=== PATIENT | female | born 1995 | race African-American/Black ===

== ENCOUNTER 2017-01-07 18:49 | Emergency (ER) | payer OTHER ==
[~2017-01-07] VITALS: Ht 147.3 cm; Wt 52.0 kg
[~2017-01-07 18:49] MED LIST: MEDR4PAK3 PO
[2017-01-07 18:54] VITALS: BP 134/66; PULSE 105; RESP 16; TEMP 98.7; O2SAT 99
--- NOTE | 2017-01-07 19:06 | PD ---
Physical Exam Date Seen by Provider: Jan 07, 2017 Time Seen by Provider: 19:04 Narrative 21 yo female here for evaluation of finger injury. Left middle finger. Happened yesterday on a car door. No other complains. Vitals stable in triage. Awaiting bed placement Data Data Last Documented VS Vital Signs Date Time Temp Pulse Resp B/P (MAP) Pulse Ox O2 Delivery O2 Flow Rate FiO2 01/07/17 18:54 98.7 105 16 134/66 (88) 99 MDM Medical Record Reviewed: Yes Supervised Visit with SOFIA: Jeffrey Moreno Jan 07, 2017 19:06
--- NOTE | 2017-01-07 20:16 | RADRPT ---
EXAM DATE/TIME: 01/07/2017 19:27 [facility] COMPARISON: No previous studies available for comparison. INDICATIONS : Left distal middle finger was smashed in a car door yesterday. MEDICAL HISTORY : None. SURGICAL HISTORY : None. ENCOUNTER: Initial ACUITY: 1 day PAIN SCORE: 7/10 LOCATION: Left distal 3rd digit. FINDINGS: Examination of the third digit of the left hand demonstrates no evidence of fracture or dislocation. No radiopaque foreign bodies are seen. The soft tissues are intact. CONCLUSION: No acute disease. Den Lynn MD on January 07, 2017 at 20:14 Board Certified Radiologist. This report was verified electronically.
--- NOTE | 2017-01-07 22:48 | PD ---
HPI Chief Complaint: Pain: Acute or Chronic Time Seen by Provider: 22:45 Travel History International Travel<30 days: No Contact w/Intl Traveler<30days: No Traveled to known affect area: No History of Present Illness HPI 21-year-old female presents for evaluation of an injury to the distal left third finger. She closed the car door on her left third finger yesterday. She has developed some subungual hematoma which is painful, aching, worse with palpation. Her friend put a needle through her nail which seemed to help some however the symptoms have persisted which prompted evaluation. Last tetanus vaccination 1 year ago. No other complaints. PFSH Past Medical History Cardiovascular Problems: Yes (hearth murmur) Diminished Hearing: No Immunizations Current: No Tetanus Vaccination: < 5 Years ?: Not LMP: 01/06 Past Surgical History Surgical History: No Previous Surgery Social History Alcohol Use: No Tobacco Use: No Substance Use: Yes (thc) Allergies-Medications (Allergen,Severity, Reaction): Coded Allergies: No Known Allergies (Unverified , 08/26/15) Reported Meds & Prescriptions Reported Meds & Active Scripts Active Review of Systems Musculoskeletal: Positive: Pain Skin: Positive Other (pain, subungual hematoma) Physical Exam Narrative GENERAL: Well-nourished female in no acute distress SKIN: Warm and dry. Extremities: Left third finger nail subungual hematoma proximal 25% of the nail. The nail is not loose. Data Data Last Documented VS Vital Signs Date Time Temp Pulse Resp B/P (MAP) Pulse Ox O2 Delivery O2 Flow Rate FiO2 01/07/17 18:54 98.7 105 16 134/66 (88) 99 Orders Orders Finger ([id number]) (01/07/17 ) MDM Medical Decision Making Medical Screen Exam Complete: Yes Emergency Medical Condition: Yes Medical Record Reviewed: Yes Differential Diagnosis Subungual hematoma, nail bed laceration, fracture Narrative Course The patient presents with a injury to left third finger sustained yesterday morning. Examination reveals a subungual hematoma. An x-ray was performed revealing no evidence of fracture. The patient verbally consents to nail trephination. Significant improvement of symptoms with minimal subungual blood present after the procedure. She is stable for discharge. Procedures Procedure Narrative Nail trephination: No trephination was performed utilizing a cautery after the area was cleansed with Betadine. Patient tolerated procedure well. Diagnosis Primary Impression: Subungual hematoma of finger Qualified Codes: S60.10XA - Contusion of unspecified finger with damage to nail, initial encounter Additional Instructions: Wash with soap and water and apply antibiotic cream daily. Tylenol or Motrin for pain. Med/Other Pt SpecificInfo: Wound Care Disposition: DISCHARGE HOME Condition: Stable Damon Tatum Jan 07, 2017 22:48
== END 2017-01-07 23:19 | disposition home or self-care (01) ==
LOC: NEPK 18:49
DX: S60.032A Contusion of left middle finger without damage to nail, initial encounter (principal); W23.0XXA Caught, crushed, jammed, or pinched between moving objects, initial encounter
CPT/HCPCS: 11740; 73140

== ENCOUNTER 2017-08-19 12:59 | Emergency (ER) | payer OTHER ==
[~2017-08-19] VITALS: Ht 147.3 cm; Wt 53.0 kg
[2017-08-19 13:35] VITALS: BP 133/69; PULSE 88; RESP 17; TEMP 98.2; O2SAT 100
--- NOTE | 2017-08-19 14:08 | RADRPT ---
EXAM DATE/TIME: 08/19/2017 13:53 [facility] COMPARISON: No previous studies available for comparison. INDICATIONS : Chest and right side back pain. MEDICAL HISTORY : Heart murmur. SURGICAL HISTORY : None. ENCOUNTER: Initial ACUITY: 2 days PAIN SCORE: 5/10 LOCATION: Left middle chest FINDINGS: PA and lateral views of the chest demonstrate the lungs to be symmetrically aerated without evidence of mass, infiltrate or effusion. Mild prominence of the cardiac silhouette. Scoliosis. CONCLUSION: Scoliosis with mild prominence of the cardiac silhouette.. Garrett Martin MD FACR on August 19, 2017 at 14:04 Board Certified Radiologist. This report was verified electronically.
[2017-08-19 14:33] LABS: AUTOMATED NEUTROPHIL # 8.7 TH/MM3 (1.8-7.7); BASOPHIL % 0.4 % (0.0-2.0); EOSINOPHIL # 0.1 TH/MM3 (0-0.4); HEMATOCRIT 41.1 % (35.0-46.0); HEMOGLOBIN 13.6 GM/DL (11.6-15.3); LYMPH % 14.3 % (9.0-44.0); LYMPHOCYTE # 1.6 TH/MM3 (1.0-4.8); MEAN CELL VOLUME 88.5 FL (80.0-100.0); MEAN CORPUSCULAR HEMOGLOBIN 29.2 PG (27.0-34.0); MONO % 8.6 % (0.0-8.0); NEUT % 75.7 % (16.0-70.0); PLATELET COUNT 430 TH/MM3 (150-450); RED BLOOD COUNT 4.65 MIL/MM3 (4.00-5.30); WHITE BLOOD COUNT 11.4 TH/MM3 (4.0-11.0)
[2017-08-19 14:59] LABS: BICARBONATE 26.5 MEQ/L (21.0-32.0); BLOOD UREA NITROGEN 10 MG/DL (7-18); CHLORIDE 103 MEQ/L (98-107); CREATININE 0.77 MG/DL (0.50-1.00); GLOMERULAR FILTRATION RATE 115 ML/MIN (>89); GLUCOSE,RANDOM 87 MG/DL (74-106); SODIUM (NA) 137 MEQ/L (136-145)
[2017-08-19 15:04] LABS: TROPONIN I LESS THAN 0.02 NG/ML (0.02-0.05)
--- NOTE | 2017-08-19 15:54 | PD ---
HPI Chief Complaint: Pain: Acute or Chronic Time Seen by Provider: 15:44 Travel History International Travel<30 days: No Contact w/Intl Traveler<30days: No Traveled to known affect area: No History of Present Illness HPI This is a 21-year-old female with no significant past medical history presents for evaluation of right-sided chest and back pain. Symptoms started yesterday. The pain is a sharp pain which is worse with deep inspiration and worse with movement. Symptoms are alleviated when she is sitting still. She reports that she had some paresthesias on the right side of her chest today as well which resolved. She denies shortness of breath, cough, congestion, nausea, vomiting, abdominal pain, leg swelling. She denies any recent travel. She is not on any oral contraceptives. She endorses occasional marijuana and tobacco use. She has no other complaints at this time. PFSH Past Medical History Cardiovascular Problems: Yes (hearth murmur) Diminished Hearing: No Immunizations Current: No ?: Not Social History Alcohol Use: No Tobacco Use: Yes Substance Use: Yes (thc) Allergies-Medications (Allergen,Severity, Reaction): Coded Allergies: No Known Allergies (Unverified Adverse Reaction, Unknown, 08/19/17) Reported Meds & Prescriptions Reported Meds & Active Scripts Active Ibuprofen 600 Mg Tab 600 Mg PO Q6H PRN 7 Days Review of Systems Except as stated in HPI: all other systems reviewed are Neg Physical Exam Narrative GENERAL: Well-developed well-nourished female no acute distress SKIN: Warm and dry. HEAD: Atraumatic. Normocephalic. EYES: Pupils equal and round. No scleral icterus. No injection or drainage. ENT: No nasal bleeding or discharge. Mucous membranes pink and moist. NECK: Trachea midline. No JVD. CARDIOVASCULAR: Regular rate and rhythm. No murmur appreciated. RESPIRATORY: No accessory muscle use. Clear to auscultation. Breath sounds equal bilaterally. GASTROINTESTINAL: Abdomen soft, non-tender, nondistended. Hepatic and splenic margins not palpable. MUSCULOSKELETAL: No obvious deformities. No edema. NEUROLOGICAL: Awake and alert. No obvious cranial nerve deficits. Motor grossly within normal limits. Normal speech. Data Data Last Documented VS Vital Signs Date Time Temp Pulse Resp B/P (MAP) Pulse Ox O2 Delivery O2 Flow Rate FiO2 08/19/17 16:10 85 16 127/67 (87) 100 Room Air 08/19/17 13:35 98.2 Orders Orders Electrocardiogram (08/19/17 13:38) Complete Blood Count With Diff (08/19/17 13:38) Basic Metabolic Panel (Bmp) (08/19/17 13:38) Ckmb (Isoenzyme) Profile (08/19/17 13:38) Troponin I (08/19/17 13:38) Chest, Pa & Lat (08/19/17 13:38) CKMB (08/19/17 14:13) CKMB% (08/19/17 14:13) D-Dimer (08/19/17 15:50) Ed Urine Pregnancytest Poc (08/19/17 15:50) Ketorolac Inj (Toradol Inj) (08/19/17 16:00) Labs Laboratory Tests Test 08/19/17 14:13 08/19/17 16:10 White Blood Count 11.4 TH/MM3 Red Blood Count 4.65 MIL/MM3 Hemoglobin 13.6 GM/DL Hematocrit 41.1 % Mean Corpuscular Volume 88.5 FL Mean Corpuscular Hemoglobin 29.2 PG Mean Corpuscular Hemoglobin Concent 33.0 % Red Cell Distribution Width 13.0 % Platelet Count 430 TH/MM3 Mean Platelet Volume 7.0 FL Neutrophils (%) (Auto) 75.7 % Lymphocytes (%) (Auto) 14.3 % Monocytes (%) (Auto) 8.6 % Eosinophils (%) (Auto) 1.0 % Basophils (%) (Auto) 0.4 % Neutrophils # (Auto) 8.7 TH/MM3 Lymphocytes # (Auto) 1.6 TH/MM3 Monocytes # (Auto) 1.0 TH/MM3 Eosinophils # (Auto) 0.1 TH/MM3 Basophils # (Auto) 0.0 TH/MM3 CBC Comment DIFF FINAL Differential Comment Blood Urea Nitrogen 10 MG/DL Creatinine 0.77 MG/DL Random Glucose 87 MG/DL Calcium Level 9.0 MG/DL Sodium Level 137 MEQ/L Potassium Level 3.7 MEQ/L Chloride Level 103 MEQ/L Carbon Dioxide Level 26.5 MEQ/L Anion Gap 8 MEQ/L Estimat Glomerular Filtration Rate 115 ML/MIN Total Creatine Kinase 126 U/L Creatine Kinase MB 0.7 NG/ML Troponin I LESS THAN 0.02 NG/ML D-Dimer Quantitative (PE/DVT) 0.29 MG/L FEU [facility] Medical Decision Making Medical Screen Exam Complete: Yes Emergency Medical Condition: Yes Medical Record Reviewed: Yes Differential Diagnosis Pleurisy, costochondritis, pericarditis, myocarditis, aortic dissection, pneumonia, pulmonary embolism Narrative Course 21-year-old female presents with sharp right-sided chest and back pain which is worse with movement and inspiration. She appears well. Her lungs are clear to auscultation. Abdomen is soft and nontender. No evidence of DVT on examination. Lab work and chest x-ray obtained in triage. CBC reveals a WBC of 11.4, BMP is unremarkable, cardiac enzymes are negative. EKG reveals sinus rhythm. Chest x-ray reveals scoliosis with mild prominence of the cardiac silhouette. A d-dimer and a urine tests have been added on. The patient will be given Toradol for her pleuritic chest pain. D-dimer is negative. The patient has been stable during her hospital stay. She will be discharged with ibuprofen. Diagnosis Primary Impression: Pleurisy Additional Instructions: Medication as needed. Avoid tobacco and marijuana products. Follow-up with primary care physician in 1-2 weeks. Return for any emergent medical conditions. Med/Other Pt SpecificInfo: Prescription(s) given Scripts Ibuprofen (Ibuprofen) 600 Mg Tab 600 MG PO Q6H Y for Pain/Inflammation for 7 Days, #28 TAB 0 Refills Prov: Rudy Gaitan MD 08/19/17 Disposition: 01 DISCHARGE HOME Condition: Stable Damon Tatum Aug 19, 2017 15:54
[2017-08-19] MEDS ORDERED: KETOROLAC TROMETHAMINE 30 MG/ML (IVP) VIAL IV PUSH ONE (16:00)
[2017-08-19 16:10] VITALS: BP 127/67; PULSE 85; RESP 16; O2SAT 100
[2017-08-19] MEDS ORDERED: IBUP-232 PO (17:12)
--- NOTE | 2017-08-20 18:42 | EKG ---
Date Performed: 08/19/2017 Time Performed: 14:07:24 PTAGE: 21 years EKG: Sinus rhythm WITH SINUS ARRHYTHMIA POSSIBLE RIGHT VENTRICULAR CONDUCTION DELAY BORDERLINE ECG NO PREVIOUS TRACING DOCTOR: Roverto Otero Interpretating Date/Time 08/20/2017 18:41:00
== END 2017-08-19 17:53 | disposition home or self-care (01) ==
LOC: NEPC 12:59
DX: M54.9 Dorsalgia, unspecified (principal); M41.9 Scoliosis, unspecified; I49.9 Cardiac arrhythmia, unspecified; F12.10 Cannabis abuse, uncomplicated; Z72.0 Tobacco use
CPT/HCPCS: 71046; 80048; 82550; 82552; 84484; 84703; 85025; 85379; 93005; 96374; 99285; J1885